=== PATIENT | male | born 1955 | race Hispanic/Latino ===

== ENCOUNTER 2017-04-15 07:52 | Emergency (ER) | payer SELFPAY ==
[~2017-04-15 07:52] MED LIST: Sodium Chloride 0.9% 1,000 ML BAG ONE
[2017-04-15 08:40] LABS: PTT 25.2 SEC (22.9-36.1); Prothrombin Time 13.1 SEC (12.0-14.7)
[2017-04-15 08:49] LABS: ALT (SGPT) 13 U/L (8-55); AST (SGOT) 13 U/L (5-34); Albumin 3.8 g/dL (3.5-5.0); Alkaline Phosphatase 106 U/L (40-150); Anion Gap 11 mmol/L (10-20); BUN (Urea Nitrogen) 11 mg/dL (8.4-25.7); Bilirubin, Total 0.5 mg/dL (0.2-1.2); Calc. Creatinine Clearance 0 mL/min (70-130); Calcium 8.9 mg/dL (7.8-10.44); Carbon Dioxide 26 mmol/L (22-29); Chloride 109 mmol/L (98-107); Estimated GFR-MDRD Greater than 90; Glucose 129 mg/dL (70-105); Lipase 24 U/L (8-78); Potassium 3.9 mmol/L (3.5-5.1); Protein, Total 6.8 g/dL (6.0-8.3); Sodium 142 mmol/L (136-145)
[2017-04-15 08:51] LABS: CKMB 1.1 ng/mL (0-6.6); Troponin I Less than 0.010 ng/mL (< 0.028)
--- NOTE | 2017-04-15 09:02 | RAD ---
PORTABLE CHEST 1 VIEW: Date: 04/15/17 Time: 0818 hours HISTORY: Chest pain. FINDINGS/IMPRESSION: The heart size is normal. No confluent areas of lobar consolidation, pneumothorax, lydia pulmonary e faith, or pleural effusions are seen. POS: [facility]
[2017-04-15] MEDS ORDERED: Acetaminophen 500 MG TAB ONE (09:07)
--- NOTE | 2017-04-15 09:15 | CT ---
CT BRAIN WITHOUT CONTRAST: Date: 04/15/17 HISTORY: Blurry vision, dizziness. FINDINGS: There are no previous exams for comparison. No evidence of acute infarct, hemorrhage, midline shift, or abnormal extra-axial fluid collections a re seen. The ventricular size is normal. The basilar cisterns are patent. The bony calvarium is inta ct. Visualized paranasal sinuses and mastoid air cells are well aerated. IMPRESSION: No CT evidence of acute intracranial process. POS: [facility]
[2017-04-15] MEDS ORDERED: Ondansetron ODT 4 MG TAB ONE (09:26)
[2017-04-15 11:03] LABS: Troponin I Less than 0.010 ng/mL (< 0.028)
== END 2017-04-15 11:30 | disposition home or self-care (01) ==
LOC: MADERS 07:52
DX: H81.10 Benign paroxysmal vertigo, unspecified ear (principal); R09.1 Pleurisy
CPT/HCPCS: 36416; 70450; 71010; 80053; 82553; 83690; 83880; 84484; 85610; 85730; 93005; 96361; 96374; 36415-59; J2270; J7050; Q0162